=== PATIENT | female | born 1945 | race Caucasian/White ===

== ENCOUNTER 2025-02-01 09:28 | Inpatient (IN) | payer BC, MEDICARE ==
[~2025-02-01] VITALS: Ht 162.6 cm; Wt 61.3 kg
[2025-02-01] MEDS ORDERED: DILTIAZEM HCL 25 MG IV ONE ×2 (09:57→14:54)
[2025-02-01] MEDS ORDERED: FUROSEMIDE 40 MG/4 ML VIAL ONE (09:57)
[2025-02-01 10:00] LABS: PLATELET COUNT (AUTO) 365 K/uL (150-450); RED BLOOD CELL COUNT(AUTO) 3.86 MIL/uL (4.0-5.2); RED CELL DISTRIBUTION WIDTH 16.3 % (11.5-15.0); WHITE BLOOD COUNT (AUTO) 11.5 K/uL (4.3-11.0)
[2025-02-01] MEDS: DILTIAZEM HCL 50 MG IV IV ONE ×2 (10:06→11:30)
[2025-02-01] MEDS: FUROSEMIDE 40 MG/4 ML VIAL IV ONE (10:06)
[2025-02-01 10:12] LABS: CALCIUM, SERUM 9.5 mg/dL (8.5-10.1); CREATININE 1.7 mg/dL (0.6-1.3); SODIUM SERUM 138 mmol/L (136-145); UREA NITROGEN, BLOOD 27 mg/dL (7-18)
[2025-02-01 10:15] LABS: INR 1.13 (0.91-1.10)
[2025-02-01 10:24] LABS: ASPARTATE AMINOTRANSFERASE 26 U/L (15-37); NT-PRO BNP 4890 pg/mL (0-125); TOTAL PROTEIN, SERUM 7.6 g/dL (6.4-8.2)
[2025-02-01] MEDS ORDERED: TRAV2.5D7 EACHEYE (11:35)
[2025-02-01] MEDS ORDERED: FURO-145 PO (11:35)
[2025-02-01] MEDS ORDERED: AMIO200T5 PO (11:35)
[2025-02-01] MEDS ORDERED: LEVO112T5 PO (11:35)
[2025-02-01] MEDS ORDERED: AMLO-212 PO (11:35)
[2025-02-01] MEDS ORDERED: CHOL200059 PO (11:35)
[2025-02-01] MEDS ORDERED: CLOP75TA15 PO (11:35)
[2025-02-01] MEDS ORDERED: IRON PO (11:35)
[2025-02-01] MEDS ORDERED: ROSU20TA2 PO (11:35)
[2025-02-01] MEDS ORDERED: APIX5TAB PO (11:35)
[2025-02-01] MEDS ORDERED: POTA10CA43 PO (11:35)
[2025-02-01] MEDS: CHOLECALCIFEROL 1,000 UNIT TABLET (VIT D3) PO SCH (12:00)
[2025-02-01] MEDS: APIXABAN 5 MG TABLET PO SCH (12:00)
[2025-02-01] MEDS: FERROUS SULFATE (325 MG) 325 MG/TAB TABLET PO SCH (12:00)
[2025-02-01] MEDS: LEVOTHYROXINE SODIUM 112 MCG TABLET PO SCH (12:00)
[2025-02-01] MEDS ORDERED: ENOXAPARIN SODIUM 40 MG/0.4 ML DISP.SYRIN SQ SCH (12:00)
[2025-02-01] MEDS: AMLODIPINE BESYLATE 5 MG TABLET PO SCH (12:00)
[2025-02-01] MEDS: AMIODARONE HCL 200 MG TABLET PO SCH (12:00)
[2025-02-01] MEDS: CLOPIDOGREL BISULFATE 75 MG TABLET PO SCH (12:00)
[2025-02-01] MEDS: FUROSEMIDE 100 MG/10 ML VIAL IV SCH (13:00)
[2025-02-01 20:00] VITALS: BP 138/94; TEMP 98.4; O2SAT 98
[2025-02-01] MEDS: AZITHROMYCIN 500 MG in IV D5W 250 ML IV SCH (20:44)
[2025-02-01] MEDS: CEFTRIAXONE 1 G in IV D5W 50 ML IV SCH (21:57)
[2025-02-01] MEDS: FUROSEMIDE 40 MG/4 ML VIAL ONE (22:28)
[2025-02-01] MEDS: ATORVASTATIN 10 MG TABLET PO SCH (22:29)
[2025-02-02] VITALS: BP 140/108; TEMP 98.8; O2SAT 93
[2025-02-02 04:00] VITALS: BP 129/84; TEMP 98.4; O2SAT 95
[2025-02-02 08:00] VITALS: BP 118/85; TEMP 98.1; O2SAT 97
[2025-02-02 08:15] LABS: PLATELET COUNT (AUTO) 368 K/uL (150-450); RED BLOOD CELL COUNT(AUTO) 3.94 MIL/uL (4.0-5.2); RED CELL DISTRIBUTION WIDTH 16.5 % (11.5-15.0); WHITE BLOOD COUNT (AUTO) 10.3 K/uL (4.3-11.0)
[2025-02-02 08:46] LABS: ASPARTATE AMINOTRANSFERASE 22.0 U/L (15-37); CALCIUM, SERUM 9.1 mg/dL (8.5-10.1); CREATININE 1.8 mg/dL (0.6-1.3); PHOSPHORUS 3.7 mg/dL (2.5-4.9); SODIUM SERUM 144.0 mmol/L (136-145); TOTAL PROTEIN, SERUM 7.4 g/dL (6.4-8.2); UREA NITROGEN, BLOOD 29.0 mg/dL (7-18)
[2025-02-02] MEDS: POTASSIUM CHLORIDE 20 MEQ TAB.PRT.SR PO SCH (09:16)
[2025-02-02] MEDS: DILTIAZEM HCL CD 240 MG PO SCH (09:16)
[2025-02-02] MEDS: FUROSEMIDE 40 MG/4 ML VIAL IV SCH (09:25)
[2025-02-02 12:00] VITALS: BP 118/73; TEMP 98.1; O2SAT 96
[2025-02-02 13:13] LABS: LDL 90.0 mg/dL (0-99)
[2025-02-02 16:00] VITALS: BP 109/79; TEMP 97.2; O2SAT 96
[2025-02-02 19:10] LABS: APPEARANCE,URINE CLEAR (CLEAR); BLOOD, URINE NEGATIVE Ery/uL (NEGATIVE); LEUKOCYTE ESTERASE ,URINE 1+ (NEGATIVE); NITRITE, URINE NEGATIVE (NEGATIVE); UGLUCOSE NEGATIVE (NEGATIVE)
[2025-02-02 19:37] LABS: ADD URINE CULTURE YES
[2025-02-02 19:40] LABS: CREATININE, URINE 29.5 MG/DL (30.0-125.0); EOSINOPHIL,URINE None Seen; URINE SODIUM, RANDOM 111.0 mmol/l (40-220); URINE TOTAL PROTEIN 6.1 mg/dL (0-11.9)
[2025-02-02 20:00] VITALS: BP 109/65; TEMP 98.4; O2SAT 96
[2025-02-03] VITALS: BP 101/69; TEMP 98.1; O2SAT 95
[2025-02-03 04:00] VITALS: BP 103/77; TEMP 98.1; O2SAT 97
[2025-02-03] MEDS: ACETAMINOPHEN 325 MG TABLET PO PRN (04:56)
[2025-02-03 07:51] LABS: PLATELET COUNT (AUTO) 364 K/uL (150-450); RED BLOOD CELL COUNT(AUTO) 3.88 MIL/uL (4.0-5.2); RED CELL DISTRIBUTION WIDTH 16.6 % (11.5-15.0); WHITE BLOOD COUNT (AUTO) 13.4 K/uL (4.3-11.0)
[2025-02-03 08:00] VITALS: BP 103/78; TEMP 98.1; O2SAT 98
[2025-02-03 08:06] LABS: ASPARTATE AMINOTRANSFERASE 20.0 U/L (15-37); CALCIUM, SERUM 9.0 mg/dL (8.5-10.1); CREATININE 2.1 mg/dL (0.6-1.3); PHOSPHORUS 4.1 mg/dL (2.5-4.9); SODIUM SERUM 142.0 mmol/L (136-145); TOTAL PROTEIN, SERUM 7.1 g/dL (6.4-8.2); UREA NITROGEN, BLOOD 33.0 mg/dL (7-18)
[2025-02-03 08:26] LABS: CREATINE KINASE, TOTAL 49.0 U/L (26-192)
[2025-02-03] MEDS: POTASSIUM CHLORIDE 20 MEQ TAB.PRT.SR PO SCH (10:23)
[2025-02-03] MEDS: FUROSEMIDE 100 MG/10 ML VIAL IV SCH (10:23)
[2025-02-03 12:00] VITALS: BP 104/67; TEMP 98.2; O2SAT 98
[2025-02-03 16:00] VITALS: BP 113/71; TEMP 98.2; O2SAT 97
[2025-02-03 20:00] VITALS: BP 113/69; TEMP 98.4; O2SAT 97
[2025-02-04] VITALS (7 sets, daily range): BP systolic 104–121; BP diastolic 57–76; TEMP 97.5–98.4; O2SAT 95–98
[2025-02-04] MEDS: AMIODARONE HCL 200 MG TABLET PO SCH (08:38)
[2025-02-04] MEDS: DIGOXIN INJ 0.5 MG/2 ML AMPUL IV SCH (11:47)
[2025-02-04 16:27] LABS: PLATELET COUNT (AUTO) 413 K/uL (150-450); RED BLOOD CELL COUNT(AUTO) 3.85 MIL/uL (4.0-5.2); RED CELL DISTRIBUTION WIDTH 16.2 % (11.5-15.0); WHITE BLOOD COUNT (AUTO) 13.2 K/uL (4.3-11.0)
[2025-02-04 16:46] LABS: ASPARTATE AMINOTRANSFERASE 15.0 U/L (15-37); CALCIUM, SERUM 9.0 mg/dL (8.5-10.1); CREATININE 2.3 mg/dL (0.6-1.3); PHOSPHORUS 3.4 mg/dL (2.5-4.9); SODIUM SERUM 139.0 mmol/L (136-145); TOTAL PROTEIN, SERUM 7.7 g/dL (6.4-8.2); UREA NITROGEN, BLOOD 33.0 mg/dL (7-18)
[2025-02-04] MEDS ORDERED: LIDOCAINE 5% OINT 35.44 GM TUBE TP PRN (18:00)
[2025-02-04] MEDS: METHYL SALICYLATE/MENTHOL 28GM 28 GM TUBE TP PRN (18:18)
[2025-02-05] VITALS: BP 133/79; TEMP 98.6; O2SAT 98
[2025-02-05 01:09] LABS: PTH, INTACT 94 pg/mL (15-65)
[2025-02-05 04:00] VITALS: BP 118/73; TEMP 97.5; O2SAT 99
[2025-02-05 07:20] LABS: PLATELET COUNT (AUTO) 387 K/uL (150-450); RED BLOOD CELL COUNT(AUTO) 3.70 MIL/uL (4.0-5.2); RED CELL DISTRIBUTION WIDTH 16.1 % (11.5-15.0); WHITE BLOOD COUNT (AUTO) 9.9 K/uL (4.3-11.0)
[2025-02-05 07:55] LABS: CALCIUM, SERUM 9.7 mg/dL (8.5-10.1); CREATININE 1.9 mg/dL (0.6-1.3); PHOSPHORUS 3.6 mg/dL (2.5-4.9); SODIUM SERUM 141.0 mmol/L (136-145); UREA NITROGEN, BLOOD 28.0 mg/dL (7-18)
[2025-02-05 08:00] VITALS: BP 118/70; TEMP 97.5; O2SAT 98
[2025-02-05] MEDS: BUMETANIDE INJ 16 MG in IV NS 0.9% 16 ML IV ONE (09:38)
[2025-02-05] MEDS: METOPROLOL TARTRATE 50 MG TABLET PO SCH (09:39)
[2025-02-05 12:00] VITALS: BP 112/73; TEMP 98.2; O2SAT 97
[2025-02-05] MEDS: DIGOXIN 0.125 MG TABLET PO SCH (12:55)
[2025-02-05 16:00] VITALS: BP 116/74; TEMP 97.6; O2SAT 99
[2025-02-05 20:00] VITALS: BP 117/68; TEMP 98.2; O2SAT 98
[2025-02-06] VITALS: BP 97/59; TEMP 98.6; O2SAT 99
[2025-02-06 04:00] VITALS: BP 110/65; TEMP 98.5; O2SAT 98
[2025-02-06 07:08] LABS: PLATELET COUNT (AUTO) 400 K/uL (150-450); RED BLOOD CELL COUNT(AUTO) 3.88 MIL/uL (4.0-5.2); RED CELL DISTRIBUTION WIDTH 15.6 % (11.5-15.0); WHITE BLOOD COUNT (AUTO) 9.4 K/uL (4.3-11.0)
[2025-02-06 07:17] LABS: ASPARTATE AMINOTRANSFERASE 16.0 U/L (15-37); CALCIUM, SERUM 9.0 mg/dL (8.5-10.1); CREATININE 2.0 mg/dL (0.6-1.3); PHOSPHORUS 4.3 mg/dL (2.5-4.9); SODIUM SERUM 138.0 mmol/L (136-145); TOTAL PROTEIN, SERUM 7.2 g/dL (6.4-8.2); UREA NITROGEN, BLOOD 31.0 mg/dL (7-18)
[2025-02-06 08:00] VITALS: BP 101/67; TEMP 97.9; O2SAT 96
[2025-02-06] MEDS: POTASSIUM CHLORIDE 20 MEQ TAB.PRT.SR PO SCH (09:25)
[2025-02-06] MEDS: FUROSEMIDE 100 MG/10 ML VIAL IV SCH (09:26)
[2025-02-06 09:55] LABS: IRON, SERUM 21 ug/dl (50-175)
[2025-02-06 12:00] VITALS: BP 115/56; TEMP 98.1; O2SAT 96
[2025-02-06 16:00] VITALS: BP 103/55; TEMP 98.1; O2SAT 99
[2025-02-06 20:00] VITALS: BP 106/67; TEMP 98.8; O2SAT 95
[2025-02-07] VITALS: BP 115/55; TEMP 98.6; O2SAT 96
[2025-02-07 04:14] VITALS: BP 117/72; TEMP 98.2; O2SAT 96
[2025-02-07 06:19] LABS: PLATELET COUNT (AUTO) 453 K/uL (150-450); RED BLOOD CELL COUNT(AUTO) 3.94 MIL/uL (4.0-5.2); RED CELL DISTRIBUTION WIDTH 16.1 % (11.5-15.0); WHITE BLOOD COUNT (AUTO) 10.2 K/uL (4.3-11.0)
[2025-02-07 06:23] LABS: ASPARTATE AMINOTRANSFERASE 15.0 U/L (15-37); CALCIUM, SERUM 9.6 mg/dL (8.5-10.1); CREATININE 2.1 mg/dL (0.6-1.3); PHOSPHORUS 4.0 mg/dL (2.5-4.9); SODIUM SERUM 139.0 mmol/L (136-145); TOTAL PROTEIN, SERUM 7.4 g/dL (6.4-8.2); UREA NITROGEN, BLOOD 37.0 mg/dL (7-18)
[2025-02-07 08:00] VITALS: BP 116/69; TEMP 98.1; O2SAT 95
[2025-02-07] MEDS: POTASSIUM CHLORIDE 10 MEQ TABLET.SA PO SCH (09:54)
[2025-02-07] MEDS: FUROSEMIDE 40 MG TABLET PO SCH (09:54)
[2025-02-07] MEDS: ONDANSETRON HCL/PF 4 MG/2 ML VIAL IVP PRN (11:21)
[2025-02-07 12:00] VITALS: BP 101/62; TEMP 97.5; O2SAT 97
[2025-02-07] MEDS ORDERED: DIGO125T PO (12:08)
== END 2025-02-07 14:05 | disposition home health service (06) | DRG 291 ==
LOC: ER 09:31 → TELE1 19:33 → TELE-TD 19:53 → TELE1 02-04 10:12
PROVIDERS: ADMIT Nurse Practitioner Acute Care
DX: I13.0 Hypertensive heart and chronic kidney disease with heart failure and stage 1 through stage 4 chronic kidney disease, or unspecified chronic kidney disease (principal); I50.21 Acute systolic (congestive) heart failure; N17.0 Acute kidney failure with tubular necrosis; N18.4 Chronic kidney disease, stage 4 (severe); I48.20 Chronic atrial fibrillation, unspecified; D64.9 Anemia, unspecified; D72.829 Elevated white blood cell count, unspecified; E03.9 Hypothyroidism, unspecified; E78.5 Hyperlipidemia, unspecified; Z95.5 Presence of coronary angioplasty implant and graft; I25.10 Atherosclerotic heart disease of native coronary artery without angina pectoris; E83.89 Other disorders of mineral metabolism; R00.0 Tachycardia, unspecified
CPT/HCPCS: 36415; 71045-TC; 71250-TC; 73630-TC; 76770-TC; 80048-TC; 80053-TC; 80061-TC; 80076-TC; 81001; 82550-TC; 82570-TC; 82728-TC; 83540-TC; 83735-TC; 83880; 83970; 84100-TC; 84155; 84165; 84300-TC; 84439-TC; 84443-TC; 84484-TC; 85025-TC; 85730-TC; 87081-TC; 87086-TC; 93307-TC; 97110-TC; 97112-TC; 97116-TC; 97530-TC; A4223; G0378; J0456; J0696; J1160; J1938; J2405; J3490; J7050; J7060